=== PATIENT | male | born 1960 | race Caucasian/White ===

== ENCOUNTER 2017-11-27 06:53 | Day surgery (SDC) | payer BC ==
[2017-11-11 14:25] VITALS: BMI 26.1
[2017-11-27] MEDS ORDERED: Propofol 10 mg/ml Inj (20 ML) ONE (08:29)
[2017-11-27] MEDS ORDERED: Sodium Chloride 0.9% 1,000 ML IV SCH (08:45)
[2017-11-27] MEDS ORDERED: Etomidate 20 mg/10ml Inj IV ONE (08:55)
[2017-11-27 10:06] VITALS: BP 134/75; PULSE 69; RESP 20; TEMP 97.7; O2SAT 99
== END 2017-11-27 10:00 | disposition home or self-care (01) ==
LOC: ENDO 06:53
PROVIDERS: ATTEND Specialist
DX: Z12.11 Encounter for screening for malignant neoplasm of colon (principal); Z86.010 Personal history of colon polyps; K57.30 Diverticulosis of large intestine without perforation or abscess without bleeding
CPT/HCPCS: 45378; J2001; J2704; J7030